=== PATIENT | male | born 1975 | race Two or more races ===

== ENCOUNTER 2019-03-02 14:41 | Emergency (ER) | payer OTHER ==
[~2019-03-02] VITALS: Ht 172.7 cm; Wt 77.1 kg
[2019-03-02] MEDS ORDERED: VASOTEC2.5 MG (14:53)
== END 2019-03-02 16:55 | disposition home or self-care (01) ==
LOC: ER 14:41
DX: S52.571A Other intraarticular fracture of lower end of right radius, initial encounter for closed fracture (principal); W22.8XXA Striking against or struck by other objects, initial encounter; Y93.89 Activity, other specified; Y92.69 Other specified industrial and construction area as the place of occurrence of the external cause; Y99.8 Other external cause status